=== PATIENT | female | born 1985 | race Caucasian/White ===

== ENCOUNTER 2018-01-03 09:02 | Inpatient (IN) | payer OTHER ==
[2018-01-03] MEDS ORDERED: EPSOM SALT 454 GM TP PRN (09:37)
[2018-01-03] MEDS ORDERED: TERBUTALINE SULFATE 1 MG/ML VIAL IV PRN (09:37)
[2018-01-03] MEDS ORDERED: MISOPROSTOL 200 MCG TAB PO PRN (09:37)
[2018-01-03] MEDS ORDERED: IBUPROFEN 600 MG TAB PO PRN (09:37)
[2018-01-03] MEDS ORDERED: AMMONIA AROMATIC 1 EACH AMP IH PRN (09:37)
[2018-01-03] MEDS ORDERED: LIDOCAINE 1% 300 MG/30 ML SDV SC PRN (09:37)
[2018-01-03] MEDS ORDERED: OLIVE OIL 118 ML BTL MISC PRN (09:37)
--- NOTE | 2018-01-03 10:25 | PDGENHP ---
History and Physical History and Physical: CARE: [facility] HPI: Patient is a 32 yo G 1 P 0 at 40 weeks ega who presents to L&D with complaints of contractions since 0500 this am. She became much more uncomfortable around 8am - contractions are currently 3 minutes apart and mod/ firm. She denies leaking fluid or vaginal bleeding. Baby has been active. She is breathing well with contractions, states she would like to avoid an epidural , but open to other pain relief options. Blood pressures during WNL, although BPs on admission 150s/90s. Denies recent headaches, visual changes. Reports increase in pedal edema the last several days. No epigastric pain. EDC: 01/03/18 which is based on LMP: 03/29/17 which is known and consistent with Ultrasound at 8 weeks. Her is complicated by: 1. h/o migraines with aura 2. h/o sub-clinical hyperthyroidism - thyroid levels WNL during 3. Anemia - taking daily ferrous sulfate - most recent HCT 36 at 24 weeks. 4. h/o anxiety. Not treated. Review of Systems: Constitutional: Denies any fever, chills, or fatigue HEENT: denies any visual changes, difficulty swallowing, hearing loss Cardiovascular: Denies any chest pain, palpitations, leg swelling Respiratory: denies any cough, wheezing, or shortness of breathe GI: Denies any nausea, vomiting, diarrhea, constipation : denies any dysuria, urgency, frequency, vaginal bleeding Musculoskeletal: denies any muscle or bone pain Skin: denies any rashes Neuro: denies any headache, seizures, lightheadedness, dizziness, or loss of consciousness Psychiatric: denies any depression, anxiety, or SI/HI thoughts HISTORY: Previous OB history: none G1 Past medical history: HSV 1, Migraines w/aura, h/o sub-clinical hyperthyroidism, h/o anxiety - never treated Past surgical history: benign growth removed left arm 2014, growth removed left leg 2016 Medications: PNV, iron Allergies (list reaction): NKDA LABS: Rh: A pos ABS: Neg Rubella: Immune HbsAg: NR HIV: NR VDRL: NR 1hr: 89 GC: Neg Chlamydia: Neg Pap: Normal GBS: neg Innatal - WNL Standard Panel - Fragile X [place] carrier BMI: (prepreg) 29 PHYSICAL EXAM: Constitutional: WN, A&Ox3 HEENT: normocephalic atraumatic, supple Heart: RRR, no murmur Chest: CTA-B Abdomen: Soft, nontender, gravid SVE: 5-6/90/-2 Extremities: 2+ lower ext edema, negative franca's sign Reflexes: 3+ Neuro: grossly normal Psych: normal affect assessment: Reassuring FHTs, baseline 130s +accels, no decels, moderate variability Contractions: toco q 3 min Assessment: 1) 32 yo G 1 P 0 with IUP@ 40 weeks ega 2) Active labor 3) GBS neg 4) Cat 1 FHR tracing 5) Elevated Bps - 150s/90s on admission Plan: 1) Admit to L&D 2) PIH labs to r/o pre-eclampsia vs pain related elevated BPs 3) Monitor BPs closely 4) Pain management PRN as patient desires 5) Diet as tolerated 6) Anticipate
[2018-01-03] MEDS ORDERED: TERBUTALINE SULFATE 1 MG/ML VIAL ONE (10:28)
[2018-01-03] MEDS ORDERED: OLIVE OIL 118 ML BTL ONE (10:28)
[2018-01-03] MEDS ORDERED: LIDOCAINE 1% 300 MG/30 ML SDV ONE (10:28)
[2018-01-03] MEDS ORDERED: AMMONIA AROMATIC 1 EACH AMP IH ONE (10:28)
[2018-01-03] MEDS ORDERED: OXYTOCIN 10 UNIT/ML VIAL ONE (10:29)
[2018-01-03] MEDS ORDERED: MISOPROSTOL 200 MCG TAB ONE (10:29)
[2018-01-03 10:44] LABS: PLATELET COUNT 182 10^3/uL (150-400)
--- NOTE | 2018-01-03 12:24 | OBPROG ---
Labor Progress Note Assessment/Plan: Assessment: 32 yo G 1 P 0 with IUP@ 40 weeks ega in spontaneous labor SVE -1 cntx q 2-4 min Cat 1 FHR tracing Elevated Bps - 150s/90s on admission - currently 130s/70s. PIH labs WNL Plan: SROM lt mec stained fluid Anticipate 01/03/18 17:31 01/03/18 17:40 Subjective/Intrapartum Course: 01/03/18 17:39 Patient uncomfortable, using nitrous for pain control. Feeling some urge to push at times Objective: 01/03/18 09:45 01/03/18 09:45 Patient ABO/Rh A POSITIVE 01/03/18 09:45 Uric Acid 6.3 mg/dL (2.5-6.8) 01/03/18 09:45 Total Bilirubin 0.4 mg/dL (0.1-1.4) 01/03/18 09:45 Conjugated Bilirubin 0.4 mg/dL (0.0-0.5) 01/03/18 09:45 Unconjugated Bilirubin 0.0 mg/dL (0.0-1.1) 01/03/18 09:45 AST 20 IU/L (14-46) 01/03/18 09:45 ALT 33 IU/L (9-52) 01/03/18 09:45 Lactate Dehydrogenase 489 IU/L (313-618) 01/03/18 09:45 - SVE Dilation (cm): 8 Effacement (%): 80 Station: -1 Membranes: AROM Amniotic Fluid Color: Clear - Contraction Pattern Assessment Current Contraction Pattern: Regular - Procedures Non-surgical Procedures: Amniotomy CNM Assessment - Uterine Assessment Contraction Strength: Strong Uterine Resting Tone: Palpates Soft Contraction Frequency (minutes): 2-3 - Intermittent Auscultation Auscultation Method Used: Ultrasound FHR Acceleration(s) Auscultated: Yes FHR Deceleration(s) Auscultated: No Oxytocin Orders Assessment - Pre-Induction/Augmentation Assessment Gestational Age: 40 week(s) and 0 day(s) ICD10 Worksheet Patient Problems: Problems Problem Status Onset Vaginal delivery Acute - ICD10 Problem Qualifiers (1) Vaginal delivery
[2018-01-03] MEDS: LR 1,000 ML IV PRN ×2 (15:07→18:20)
[2018-01-03] MEDS ORDERED: HYDROCORTISONE 0.5% CREAM TP PRN (15:19)
[2018-01-03] MEDS ORDERED: SIMETHICONE 80 MG TAB CHEW PO PRN (15:19)
[2018-01-03] MEDS ORDERED: HYDROCODONE/APAP 5/325 TAB PO PRN (15:19)
--- NOTE | 2018-01-03 17:47 | OBDEL ---
Info Type: Vaginal Presentation at Delivery: Vertex L&D Analgesia/Anesthesia Type: Local, Nitrous GBS+: No Intrapartum Medications: Generic Name Dose Route Start Last Admin Trade Name Freq PRN Reason Stop Dose Admin Lactated Ringer's 1,000 mls @ 0 mls/hr 01/03/18 09:37 01/03/18 15:07 Lr IV 01/04/18 09:36 1,000 mls PRN PRN Administration SEE PROTOCOL CONDITIONS Protocol Per Protocol Discontinued Medications Generic Name Dose Route Start Last Admin Trade Name Freq PRN Reason Stop Dose Admin Ibuprofen 600 mg 01/03/18 09:37 01/03/18 14:59 Motrin PO 600 mg ONCE PRN Administration post , pain - Hospital Course Intrapartum: 01/03/18 17:39 Patient uncomfortable, using nitrous for pain control. Feeling some urge to push at times Indications for Delivery: Spontaneous Labor Vaginal Delivery - Delivery Provider Delivery Physician/CNM: Janis Bellamy Proctoring Provider: Jolie Graves (assisted for repair ) - Labor and Delivery Onset of Contractions Date: 01/03/18 Onset of Contractions Time: 05:00 Onset of Contractions Type: Spontaneous Rupture of Membranes Date: 01/03/18 Rupture of Membranes Time: 11:15 Rupture of Membranes Type: Artificial Amniotic Fluid Color: Clear Dilation Complete Date: 01/03/18 Dilation Complete Time: 13:08 Placenta Delivery Date: 01/03/18 Placenta Delivery Time: 14:00 Total Hours of Labor: 9 Non-surgical Procedures: Amniotomy Laceration: 4th Degree, Other (Specify) (right labial and bilataral sulcus tear Repair by Jolie Graves - see consult note) Repair: 2-0, 3-0, Vicryl Vaginal Sponge Count Correct: Yes (20 small laps, 5 large laps) Vaginal Needle Count Correct: Yes Vaginal Sweep Performed: No EBL: 450 Delivery Events: Nuchal Cord, Shoulder Dystocia Data MARIA TERESA: 01/03/18 Gestational Age: 40 week(s) and 0 day(s) Veliz Delivery Date: 01/03/18 Delivery Time: 13:48 Sex of : Female Weight (gm): 4028 g Score (1 Min): 7 Score (5 Min): 9 Shoulder Dystocia Time Head Delivered: 13:47 Time Body Delivered: 13:48 2nd Maneuver Attempted Maneuvers: Suprapubic Pressure 1st Maneuver Attempted Maneuvers: Sana Dystocia Comment: 30 second shoulder dystocia resolved with Sana and supra pubic pressure ICD10 Worksheet Patient Problems: Problems Problem Status Onset Fourth degree perineal laceration during delivery, delivered Acute Shoulder (girdle) dystocia during labor and deliver, delivered Acute Vaginal delivery Acute - ICD10 Problem Qualifiers (1) Vaginal delivery (2) Shoulder (girdle) dystocia during labor and deliver, delivered (3) Fourth degree perineal laceration during delivery, delivered
[2018-01-03] MEDS: DOCUSATE SODIUM 100 MG CAP PO PRN (21:14)
[2018-01-03] MEDS: IBUPROFEN 600 MG TAB PO PRN (21:14)
[2018-01-04] MEDS: IBUPROFEN 600 MG TAB PO PRN ×4 (02:32→20:44)
[2018-01-04] MEDS: DOCUSATE SODIUM 100 MG CAP PO PRN (08:33)
[2018-01-04] MEDS: IRON POLYSAC/IRON HEME 28 MG TAB PO SCH ×2 (10:29→20:44)
[2018-01-04] MEDS ORDERED: POLYETHYLENE GLYCOL 3350 17 GM PKT PO PRN (10:54)
[2018-01-04] MEDS ORDERED: BISACODYL 10 MG SUPP PR PRN (10:54)
[2018-01-04] MEDS ORDERED: LACTULOSE 20 GM/30 ML UDCUP PO PRN (10:54)
[2018-01-04] MEDS ORDERED: MAGNESIUM HYDROXIDE 30 ML UDCUP PO PRN (10:54)
--- NOTE | 2018-01-04 10:58 | OBPP ---
Progress Note Assessment/Plan: Assessment: PPD 1 s/p 4th degree lac borderline HTN anemia - occas tachy Plan: routine care - bowel protocol to avoid constipation cont to observe HTN - asymptomatic iron BID 01/04/18 10:55 Subjective/ Course: 01/04/18 10:58 Pt doing well. reports mauricio discomfort of lac with ibu only. able to urinate fine. bld has decreased a bit. baby has had good latch but also gave her a hickie and right nipple very sore. not lightheaded. no CHEATHAM. disc b/p elevation and obs for now. Objective: 01/04/18 05:15 01/03/18 09:45 Patient ABO/Rh A POSITIVE 01/03/18 09:45 Uric Acid 6.3 mg/dL (2.5-6.8) 01/03/18 09:45 Total Bilirubin 0.4 mg/dL (0.1-1.4) 01/03/18 09:45 Conjugated Bilirubin 0.4 mg/dL (0.0-0.5) 01/03/18 09:45 Unconjugated Bilirubin 0.0 mg/dL (0.0-1.1) 01/03/18 09:45 AST 20 IU/L (14-46) 01/03/18 09:45 ALT 33 IU/L (9-52) 01/03/18 09:45 Lactate Dehydrogenase 489 IU/L (313-618) 01/03/18 09:45 Temp Pulse Resp BP Pulse Ox 36.8 C 114 H 18 136/92 H 95 01/04/18 08:00 01/04/18 08:00 01/04/18 08:00 01/04/18 08:00 01/04/18 08:00 Uterine Position/Fundal Height: Umbilicus -1 Uterine Tone: Firm Physical Exam - Physical Exam Abdomen: non-tender, soft, other (FF at umb -1, normal lochia) Extremities: non-tender, pedal edema (mod) Skin: normal color, warm/dry Neuro/Psych: alert, normal mood/affect
[2018-01-04] MEDS: SENNOSIDES/DOCUSATE SODIUM TAB PO SCH (20:43)
[2018-01-05] MEDS: IBUPROFEN 600 MG TAB PO PRN ×4 (02:57→20:56)
[2018-01-05] MEDS: SENNOSIDES/DOCUSATE SODIUM TAB PO SCH ×2 (09:16→20:56)
[2018-01-05] MEDS: IRON POLYSAC/IRON HEME 28 MG TAB PO SCH ×2 (09:16→20:55)
--- NOTE | 2018-01-05 15:06 | OBGCSDC ---
General Delivery Information - General Info : 1 Para: 1 Abortions: 0 Type: Vaginal L&D Analgesia/Anesthesia Type: Local, Nitrous Admission Date: 01/03/18 Labs: Patient ABO/Rh A POSITIVE 01/03/18 09:45 Hct 27.7 % (38.0-47.0) L 01/04/18 05:15 - Hospital Course Intrapartum: 01/03/18 17:39 Patient uncomfortable, using nitrous for pain control. Feeling some urge to push at times : 01/04/18 10:58 Pt doing well. reports mauricio discomfort of lac with ibu only. able to urinate fine. bld has decreased a bit. baby has had good latch but also gave her a hickie and right nipple very sore. not lightheaded. no CHEATHAM. disc b/p elevation and obs for now. 01/05/18 S) Pt doing well, reports min pain and bleeding. she is ambulating and voiding without difficulty. She is . She desires discharge home today. O) VSS, afebrile constitutional: WNWF, A&Ox3 HEENT: normocephalic, atraumatic, supple Heart: RRR, No murmur Chest: CTA-B Abdomen: Soft, nontender Uterus: Firm at U-2 Lochia: Minimal rubra Perineum: Intact, healing well Extremities: Trace edema, and negative Myah's sign Neuro: Grossly normal A) 32-year-old S/P with 4th degree lac PPD#2 P) Discharge home today Continue Pelvic rest x6wks Discussed danger signs (infection, preeclampsia, depression, heavy bleeding, etc ) RTO in 4/6 weeks Vaginal - Delivery Provider Delivery Physician/CNM: Janis Bellamy - Diagnosis Labor: Spontaneous Rupture of Membranes Type: Artificial Amniotic Fluid Color: Clear Laceration: 4th Degree, Other (Specify) (right labial and bilataral sulcus tear Repair by Jolie Graves - see consult note) Repair: 2-0, 3-0, Vicryl Delivery Events: Nuchal Cord, Shoulder Dystocia - Procedures Non-surgical Procedures: Amniotomy - Delivery Non-surgical Procedures: Amniotomy EBL: 450 [place] Data MARIA TERESA: 05/08/18 Gestational Age: 40 week(s) and 2 day(s) Veliz Delivery Date: 01/03/18 Delivery Time: 13:48 Sex of : Female [place] Weight (gm): 4028 g Score (1 Min): 7 Score (5 Min): 9 Discharge Information - Discharge Information Prescriptions: Hydrocodone/APAP 5/325 [Hickman 5/325 (*)] 1 - 2 tab PO Q4HRS PRN #20 tab PRN Reason: Pain, Moderate Ibuprofen [Motrin (*)] 600 mg PO Q6HRS PRN #30 tab PRN Reason: Pain, Mild Docusate Sodium [Colace 100 MG (*)] 100 mg PO BID PRN #60 cap PRN Reason: Constipation Condition: Good Instruction/Follow Up: One Week, Four Weeks, Six Weeks
[2018-01-05 15:54] LABS: PLATELET COUNT 151 10^3/uL (150-400)
--- NOTE | 2018-01-05 17:44 | OBPP ---
Progress Note Assessment/Plan: Assessment: [id number] s/p with 4th degree lac PPD#2 elevated BP's, normal Pre E labs anemia Plan: start labetalol 200mg BID plan d/c home tomorrow if stable BPs cont cont PO iron hydrate and ambulate discussed with Dr Motley - agrees with plan of care Subjective/ Course: 01/05/18 17:45 Pt doing well, denies any pain. reports minimal bleeding. she is . She is ambulating and voiding without difficulty. She had BM this morning. She denies any headaches, visual changes, or epigastric pain. Objective: 01/05/18 15:45 01/05/18 15:45 Patient ABO/Rh A POSITIVE 01/03/18 09:45 Uric Acid 4.7 mg/dL (2.5-6.8) 01/05/18 15:45 Total Bilirubin 0.2 mg/dL (0.1-1.4) 01/05/18 15:45 Conjugated Bilirubin 0.2 mg/dL (0.0-0.5) 01/05/18 15:45 Unconjugated Bilirubin 0.0 mg/dL (0.0-1.1) 01/05/18 15:45 AST 33 IU/L (14-46) 01/05/18 15:45 ALT 34 IU/L (9-52) 01/05/18 15:45 Lactate Dehydrogenase 433 IU/L (313-618) 01/05/18 15:45 Temp Pulse Resp BP Pulse Ox 36.4 C 77 14 140/90 H 96 01/05/18 08:00 01/05/18 16:24 01/05/18 15:16 01/05/18 16:56 01/05/18 15:16 Uterine Position/Fundal Height: Umbilicus -1, Midline Uterine Tone: Firm Physical Exam - Physical Exam General Appearance: WD/WN, alert, no apparent distress Neck: supple Respiratory: lungs clear Cardiac/Chest: regular rate, rhythm Abdomen: normal bowel sounds, non-tender, soft Skin: normal color, warm/dry Neuro/Psych: no motor/sensory deficits, alert, normal mood/affect, oriented x 3
[2018-01-05] MEDS: LABETALOL HCL 200 MG TAB PO SCH (20:55)
[2018-01-06] MEDS: IBUPROFEN 600 MG TAB PO PRN ×2 (03:08→09:08)
[2018-01-06] MEDS: LABETALOL HCL 200 MG TAB PO SCH (09:07)
[2018-01-06] MEDS: IRON POLYSAC/IRON HEME 28 MG TAB PO SCH (09:07)
[2018-01-06] MEDS: SENNOSIDES/DOCUSATE SODIUM TAB PO SCH (09:08)
[2018-01-06 09:09] VITALS: BP 137/95
--- NOTE | 2018-01-06 10:03 | OBPP ---
Progress Note Assessment/Plan: Assessment: 32 y/o PPD #3 s/p with 4th degree laceration and Gestational HTN Plan: Will d/c home on Labetalol 200mg BID now and instructions to follow-up @ [facility] next week. Check BP @ home. 01/06/18 10:03 Subjective/ Course: 01/05/18 17:45 Pt doing well, denies any pain. reports minimal bleeding. she is . She is ambulating and voiding without difficulty. She had BM this morning. She denies any headaches, visual changes, or epigastric pain. 01/06/18 09:59 Pt is feeling better this am. She is ambulating and voiding without difficulty and has min lochia. She has had 2 BM and is BF well. Objective: 01/05/18 15:45 01/05/18 15:45 Patient ABO/Rh A POSITIVE 01/03/18 09:45 Uric Acid 4.7 mg/dL (2.5-6.8) 01/05/18 15:45 Total Bilirubin 0.2 mg/dL (0.1-1.4) 01/05/18 15:45 Conjugated Bilirubin 0.2 mg/dL (0.0-0.5) 01/05/18 15:45 Unconjugated Bilirubin 0.0 mg/dL (0.0-1.1) 01/05/18 15:45 AST 33 IU/L (14-46) 01/05/18 15:45 ALT 34 IU/L (9-52) 01/05/18 15:45 Lactate Dehydrogenase 433 IU/L (313-618) 01/05/18 15:45 Temp Pulse Resp BP Pulse Ox 36.7 C 84 16 137/95 H 97 01/06/18 08:40 01/06/18 09:07 01/06/18 08:40 01/06/18 09:07 01/06/18 08:40 Uterine Position/Fundal Height: Umbilicus -2 Uterine Tone: Firm Physical Exam - Physical Exam General Appearance: alert, no apparent distress Neck: non-tender, full range of motion, supple Respiratory: chest non-tender, lungs clear, normal breath sounds Cardiac/Chest: regular rate, rhythm Abdomen: normal bowel sounds Extremities: swelling (no), Myah's sign (neg)
--- NOTE | 2018-01-06 10:55 | OBGCSDC ---
General Delivery Information - General Info : 1 Para: 1 Abortions: 0 Type: Vaginal L&D Analgesia/Anesthesia Type: Local, Nitrous Admission Date: 01/03/18 Labs: Patient ABO/Rh A POSITIVE 01/03/18 09:45 Hct 25.2 % (38.0-47.0) L 01/05/18 15:45 - Hospital Course : 01/05/18 17:45 Pt doing well, denies any pain. reports minimal bleeding. she is . She is ambulating and voiding without difficulty. She had BM this morning. She denies any headaches, visual changes, or epigastric pain. 01/06/18 09:59 Pt is feeling better this am. She is ambulating and voiding without difficulty and has min lochia. She has had 2 BM and is BF well. Vaginal - Delivery Provider Delivery Physician/CNM: Janis Bellamy - Diagnosis Labor: Spontaneous Rupture of Membranes Type: Artificial Amniotic Fluid Color: Clear Laceration: 4th Degree, Other (Specify) (right labial and bilataral sulcus tear Repair by Jolie Graves - see consult note) Repair: 2-0, 3-0, Vicryl Delivery Events: Nuchal Cord, Shoulder Dystocia - Procedures Non-surgical Procedures: Amniotomy - Delivery Non-surgical Procedures: Amniotomy EBL: 450 [place] Data MARIA TERESA: 01/03/18 Gestational Age: 40 week(s) and 3 day(s) Veliz Delivery Date: 01/03/18 Delivery Time: 13:48 Sex of : Female Weight (gm): 4028 g Score (1 Min): 7 Score (5 Min): 9 Discharge Information - Discharge Information Prescriptions: Hydrocodone/APAP 5/325 [Hanna 5/325 (*)] 1 - 2 tab PO Q4HRS PRN #20 tab PRN Reason: Pain, Moderate Ibuprofen [Motrin (*)] 600 mg PO Q6HRS PRN #30 tab PRN Reason: Pain, Mild Docusate Sodium [Colace 100 MG (*)] 100 mg PO BID PRN #60 cap PRN Reason: Constipation Iron Polysacch/Iron Heme Polyp [Bifera] 28 mg PO BID #60 tab Labetalol HCl [Trandate 200 mg (*)] 200 mg PO BID #60 tab Condition: Good Instruction/Follow Up: One Week
== END 2018-01-06 11:45 | disposition home or self-care (01) | DRG 775 ==
LOC: FLD 09:02 → FOB 19:05
PROVIDERS: ADMIT Advanced Practice Midwife; ATTEND Obstetrics & Gynecology
PROC: 0DQP0ZZ Repair Rectum, Open Approach (ICD-10-PCS; principal; 2018-01-03)
PROC: 10E0XZZ Delivery of Products of Conception, External Approach (ICD-10-PCS; principal; 2018-01-03)
DX: O70.3 Fourth degree perineal laceration during delivery (principal); O66.0 Obstructed labor due to shoulder dystocia; O69.9XX0 Labor and delivery complicated by cord complication, unspecified, not applicable or unspecified; O99.013 Anemia complicating pregnancy, third trimester; O99.284 Endocrine, nutritional and metabolic diseases complicating childbirth; O99.353 Diseases of the nervous system complicating pregnancy, third trimester; O13.4 Gestational [pregnancy-induced] hypertension without significant proteinuria, complicating childbirth; G43.109 Migraine with aura, not intractable, without status migrainosus; D64.9 Anemia, unspecified; E05.90 Thyrotoxicosis, unspecified without thyrotoxic crisis or storm; Z37.0 Single live birth; Z3A.40 40 weeks gestation of pregnancy
CPT/HCPCS: J2590; J3105